=== PATIENT | female | born 1975 | race Caucasian/White ===

== ENCOUNTER 2017-06-14 13:11 | Inpatient (IN) | payer MEDICARE, MEDICAID ==
[2017-06-14] MEDS ORDERED: cefTRIAXone SODIUM 2 GM in IV DEXTROSE 5% 100 ML IV (13:30)
[2017-06-14] MEDS ORDERED: PROMETHAZINE 25 MG SUPP.RECT. PR (13:45)
[2017-06-14] MEDS: GABAPENTIN 300 MG CAPSULE. PO ×2 (14:00→21:22)
[2017-06-14] MEDS: BACLOFEN 10 MG TABLET. PO ×2 (14:00→21:22)
[2017-06-14 14:40] LABS: HEMATOCRIT 33.4 % (36.0-47.0); HEMOGLOBIN 10.8 g/dL (12.0-15.5); MEAN CORPUSCULAR HEMOGLOBIN 24 pg (25-35); MEAN CORPUSCULAR HGB CONC 33 g/dL (31-37); MEAN CORPUSCULAR VOLUME 75 fL (79-100); PLATELET COUNT 233 x10^3/uL (140-400); RED BLOOD COUNT 4.44 x10^6/uL (3.50-5.40); RED CELL DISTRIBUTION WIDTH 16.7 % (11.5-14.5); WHITE BLOOD COUNT 9.3 x10^3/uL (4.0-11.0)
[2017-06-14 14:49] LABS: ANION GAP 9 (6-14); BLOOD UREA NITROGEN 8 mg/dL (7-20); BUN/CREATININE RATIO 9 (6-20); CALCIUM 8.5 mg/dL (8.5-10.1); CARBON DIOXIDE 30 mmol/L (21-32); CHLORIDE 103 mmol/L (98-107); CREATININE 0.9 mg/dL (0.6-1.0); GLUCOSE 107 mg/dL (70-99); POTASSIUM 3.6 mmol/L (3.5-5.1); SODIUM 142 mmol/L (136-145)
[2017-06-14 14:55] LABS: ALBUMIN 3.1 g/dL (3.4-5.0); ALBUMIN/GLOBULIN RATIO 0.8 (1.0-1.7); ALK PHOS 96 U/L (46-116); ALT (SGPT) 25 U/L (14-59); AST (SGOT) 19 U/L (15-37); MAGNESIUM 1.8 mg/dL (1.8-2.4); TOTAL BILIRUBIN 0.5 mg/dL (0.2-1.0); TOTAL PROTEIN 7.1 g/dL (6.4-8.2)
[2017-06-14 15:09] LABS: LACTIC ACID 1.6 mmol/L (0.4-2.0)
[2017-06-14] MEDS ORDERED: CONTRAST GIVEN MC (15:15)
[2017-06-14] MEDS: IOHEXOL 300 MG/ML 100ML VIAL. IV (15:27)
[2017-06-14] MEDS: PROMETHAZINE 12.5 MG in IV DEXTROSE 5% 50 ML IV ×3 (15:34→21:19)
[2017-06-14] MEDS: AZITHROMYCIN 500 MG in IV NORMAL SALINE 250ML 250 ML IV (16:52)
[2017-06-14] MEDS: cefTRIAXone IV Push 2 GM VIAL. IVP (16:52)
[2017-06-14] MEDS: ALBUTEROL SULFATE 2.5 MG/3 ML NEBU. NEB ×2 (17:00→20:06)
[2017-06-14] MEDS: HYDROmorphone 2 MG/ML VIAL IV ×3 (17:18→21:19)
[2017-06-14] MEDS: LACTOBACILLUS RHAMNOSUS GG 1 CAPSULE. PO (21:22)
[2017-06-15] MEDS: HYDROmorphone 2 MG/ML VIAL IV ×2 (00:15→03:55)
[2017-06-15] MEDS: PROMETHAZINE 12.5 MG in IV DEXTROSE 5% 50 ML IV ×6 (00:15→20:50)
[2017-06-15 05:17] LABS: MRSA BY PCR Negative (Negative)
[2017-06-15] MEDS: ALBUTEROL SULFATE 2.5 MG/3 ML NEBU. NEB ×4 (08:00→20:00)
[2017-06-15] MEDS ORDERED: LIDOCAINE WITH 8.4% SOD BICARB 3 ML DISP.SYRIN. (08:02)
[2017-06-15] MEDS: HYDROmorphone 4 MG TABLET PO ×9 (08:51→21:51)
[2017-06-15] MEDS: LACTOBACILLUS RHAMNOSUS GG 1 CAPSULE. PO ×2 (08:51→20:51)
[2017-06-15] MEDS: BACLOFEN 10 MG TABLET. PO ×3 (08:51→20:50)
[2017-06-15] MEDS: GABAPENTIN 300 MG CAPSULE. PO ×3 (08:52→20:51)
[2017-06-15] MEDS: LIDOCAINE WITH 8.4% SOD BICARB 3 ML DISP.SYRIN. INJ (10:04)
[2017-06-15] MEDS: IV NORMAL SALINE 1000ML BAG 1,000 ML IV ×2 (10:45→20:50)
[2017-06-15 11:43] LABS: ADD MAN DIFF? NO
[2017-06-15 11:44] LABS: BASO % 1 % (0-3); EOS % 1 % (0-3); HEMOGLOBIN 10.2 g/dL (12.0-15.5); LYMPH # 1.5 x10^3/uL (1.0-4.8); LYMPH % 21 % (24-48); MEAN CORPUSCULAR HEMOGLOBIN 25 pg (25-35); MEAN CORPUSCULAR HGB CONC 33 g/dL (31-37); MEAN CORPUSCULAR VOLUME 75 fL (79-100); MONO # 0.5 x10^3/uL (0.0-1.1); MONO % 7 % (0-9); NEUT # 5.4 x10^3uL (1.8-7.7); NEUT % 72 % (31-73); PLATELET COUNT 221 x10^3/uL (140-400); RED BLOOD COUNT 4.13 x10^6/uL (3.50-5.40); WHITE BLOOD COUNT 7.5 x10^3/uL (4.0-11.0)
[2017-06-15 11:54] LABS: ANION GAP 8 (6-14); BLOOD UREA NITROGEN 8 mg/dL (7-20); BUN/CREATININE RATIO 10 (6-20); CALCIUM 8.2 mg/dL (8.5-10.1); CARBON DIOXIDE 30 mmol/L (21-32); CHLORIDE 106 mmol/L (98-107); CREATININE 0.8 mg/dL (0.6-1.0); GLUCOSE 97 mg/dL (70-99); POTASSIUM 3.3 mmol/L (3.5-5.1); SODIUM 144 mmol/L (136-145)
[2017-06-15 12:00] LABS: ALBUMIN/GLOBULIN RATIO 0.9 (1.0-1.7); ALK PHOS 89 U/L (46-116); ALT (SGPT) 22 U/L (14-59); AST (SGOT) 17 U/L (15-37); TOTAL BILIRUBIN 0.6 mg/dL (0.2-1.0); TOTAL PROTEIN 6.5 g/dL (6.4-8.2)
[2017-06-15 12:03] LABS: LACTIC ACID 0.9 mmol/L (0.4-2.0)
[2017-06-15 15:28] LABS: CSF GLUCOSE 61 mg/dL (37-70)
[2017-06-15 15:31] LABS: CSF CLARITY CLEAR; CSF COLOR COLORLESS; CSF RBC COUNT 5; CSF TUBE # 3; CSF WBC COUNT 1
[2017-06-15] MEDS: AZITHROMYCIN 500 MG in IV DEXTROSE 5 %-0.2 % NACL 250 ML IV (15:50)
[2017-06-15] MEDS: cefTRIAXone IV Push 2 GM VIAL. IVP (15:51)
[2017-06-15] MEDS: POTASSIUM CL 20MEQ D5-0.45NACL 1,000 ML IV (15:58)
[2017-06-15] MEDS: ACETAMINOPHEN 325 MG TABLET. PO (20:51)
[2017-06-16] MEDS: POTASSIUM CL 20MEQ D5-0.45NACL 1,000 ML IV ×2 (02:25→15:28)
[2017-06-16] MEDS: PROMETHAZINE 12.5 MG in IV DEXTROSE 5% 50 ML IV ×4 (03:08→21:33)
[2017-06-16] MEDS: ACETAMINOPHEN 325 MG TABLET. PO (03:35)
[2017-06-16] MEDS: HYDROmorphone 4 MG TABLET PO ×4 (03:36→22:51)
[2017-06-16] MEDS: IV NORMAL SALINE 1000ML BAG 1,000 ML IV ×3 (05:30→23:58)
[2017-06-16] MEDS: ALBUTEROL SULFATE 2.5 MG/3 ML NEBU. NEB ×4 (07:15→19:27)
[2017-06-16] MEDS: LACTOBACILLUS RHAMNOSUS GG 1 CAPSULE. PO ×2 (08:37→20:38)
[2017-06-16] MEDS: BACLOFEN 10 MG TABLET. PO ×3 (08:37→20:38)
[2017-06-16] MEDS: GABAPENTIN 300 MG CAPSULE. PO ×3 (08:44→20:38)
[2017-06-16] MEDS: fentaNYL 25MCG/HR PATCH 1 PATCH PATCH.TD72 TD (09:49)
[2017-06-16] MEDS: AZITHROMYCIN 500 MG in IV DEXTROSE 5 %-0.2 % NACL 250 ML IV (14:21)
[2017-06-16] MEDS: cefTRIAXone IV Push 2 GM VIAL. IVP (15:28)
[2017-06-16] MEDS: CLOTRIMAZOLE 1% VAGINAL CREAM 45GM TUBE. VG (20:39)
[2017-06-16 21:10] LABS: C DIFF BY PCR Negative (Negative)
[2017-06-17] MEDS: ACETAMINOPHEN/CODEINE 300/30MG TABLET. PO (01:59)
[2017-06-17] MEDS: POTASSIUM CL 20MEQ D5-0.45NACL 1,000 ML IV (02:06)
[2017-06-17] MEDS: PROMETHAZINE 12.5 MG in IV DEXTROSE 5% 50 ML IV ×4 (02:15→21:08)
[2017-06-17] MEDS: HYDROmorphone 4 MG TABLET PO ×4 (05:35→23:41)
[2017-06-17 05:53] LABS: HEMATOCRIT 31.1 % (36.0-47.0); HEMOGLOBIN 10.1 g/dL (12.0-15.5); MEAN CORPUSCULAR HEMOGLOBIN 24 pg (25-35); MEAN CORPUSCULAR HGB CONC 33 g/dL (31-37); MEAN CORPUSCULAR VOLUME 74 fL (79-100); PLATELET COUNT 239 x10^3/uL (140-400); RED BLOOD COUNT 4.19 x10^6/uL (3.50-5.40); RED CELL DISTRIBUTION WIDTH 16.3 % (11.5-14.5); WHITE BLOOD COUNT 8.4 x10^3/uL (4.0-11.0)
[2017-06-17 06:16] LABS: ALBUMIN 2.7 g/dL (3.4-5.0); ALBUMIN/GLOBULIN RATIO 0.7 (1.0-1.7); ALK PHOS 83 U/L (46-116); ALT (SGPT) 26 U/L (14-59); ANION GAP 7 (6-14); AST (SGOT) 19 U/L (15-37); BLOOD UREA NITROGEN 5 mg/dL (7-20); BUN/CREATININE RATIO 6 (6-20); CALCIUM 8.1 mg/dL (8.5-10.1); CARBON DIOXIDE 31 mmol/L (21-32); CHLORIDE 106 mmol/L (98-107); CREATININE 0.9 mg/dL (0.6-1.0); GLUCOSE 111 mg/dL (70-99); POTASSIUM 3.1 mmol/L (3.5-5.1); SODIUM 144 mmol/L (136-145); TOTAL BILIRUBIN 0.4 mg/dL (0.2-1.0); TOTAL PROTEIN 6.4 g/dL (6.4-8.2)
[2017-06-17] MEDS: ALBUTEROL SULFATE 2.5 MG/3 ML NEBU. NEB ×4 (07:22→19:35)
[2017-06-17] MEDS: BACLOFEN 10 MG TABLET. PO ×3 (08:36→21:09)
[2017-06-17] MEDS: GABAPENTIN 300 MG CAPSULE. PO ×3 (08:36→21:09)
[2017-06-17] MEDS: LACTOBACILLUS RHAMNOSUS GG 1 CAPSULE. PO ×2 (08:36→21:09)
[2017-06-17] MEDS: POTASSIUM CHLORIDE 20 MEQ TABLET.ER. PO ×3 (10:10→21:09)
[2017-06-17] MEDS: POTASSIUM CL 40MEQ D5-0.45NACL 1,000 ML IV ×2 (10:30→23:53)
[2017-06-17] MEDS ORDERED: CONTRAST GIVEN MC (10:45)
[2017-06-17] MEDS: IOHEXOL 300 MG/ML 100ML VIAL. IV (11:00)
[2017-06-17] MEDS: IV NORMAL SALINE 1000ML BAG 1,000 ML IV ×2 (11:24→21:20)
[2017-06-17] MEDS: AZITHROMYCIN 500 MG in IV DEXTROSE 5 %-0.2 % NACL 250 ML IV (13:53)
[2017-06-17] MEDS: cefTRIAXone IV Push 2 GM VIAL. IVP (15:07)
[2017-06-17] MEDS: CLOTRIMAZOLE 1% VAGINAL CREAM 45GM TUBE. VG (21:16)
[2017-06-18] MEDS: PROMETHAZINE 12.5 MG in IV DEXTROSE 5% 50 ML IV (01:21)
[2017-06-18] MEDS: HYDROmorphone 4 MG TABLET PO ×2 (05:46→12:55)
[2017-06-18] MEDS: PROMETHAZINE 12.5 MG in IV NORMAL SALINE 50ML 50 ML IV ×2 (06:11→10:08)
[2017-06-18] MEDS: ALBUTEROL SULFATE 2.5 MG/3 ML NEBU. NEB ×3 (06:52→14:49)
[2017-06-18 07:23] LABS: ANION GAP 5 (6-14); BLOOD UREA NITROGEN 5 mg/dL (7-20); CALCIUM 8.9 mg/dL (8.5-10.1); CARBON DIOXIDE 31 mmol/L (21-32); CHLORIDE 104 mmol/L (98-107); CREATININE 0.8 mg/dL (0.6-1.0); GLUCOSE 115 mg/dL (70-99); POTASSIUM 3.6 mmol/L (3.5-5.1); SODIUM 140 mmol/L (136-145)
[2017-06-18] MEDS: POTASSIUM CHLORIDE 20 MEQ TABLET.ER. PO ×2 (08:16→14:01)
[2017-06-18] MEDS: LACTOBACILLUS RHAMNOSUS GG 1 CAPSULE. PO (08:16)
[2017-06-18] MEDS: BACLOFEN 10 MG TABLET. PO ×2 (08:17→14:01)
[2017-06-18] MEDS: GABAPENTIN 300 MG CAPSULE. PO ×2 (08:17→14:00)
[2017-06-18] MEDS ORDERED: diphenhydrAMINE 50 MG/ML VIAL IM (09:30)
[2017-06-18] MEDS: DEXAMETHASONE SOD PHOS 4 MG/ML VIAL IV (09:56)
[2017-06-18] MEDS: diphenhydrAMINE 50 MG/ML VIAL IVP (09:59)
[2017-06-18] MEDS: HYDROmorphone 2 MG/ML VIAL IV (10:03)
[2017-06-18] MEDS: POTASSIUM CL 40MEQ D5-0.45NACL 1,000 ML IV (12:48)
[2017-06-18] MEDS: AZITHROMYCIN 500 MG in IV DEXTROSE 5 %-0.2 % NACL 250 ML IV (12:56)
[2017-06-18] MEDS: cefTRIAXone IV Push 2 GM VIAL. IVP (14:02)
== END 2017-06-18 15:53 | disposition home or self-care (01) | DRG 871 ==
LOC: 1 WEST ICU 13:11 → 5 NORTH 06-15 18:30
PROC: 02HV33Z Insertion of Infusion Device into Superior Vena Cava, Percutaneous Approach (ICD-10-PCS; principal; 2017-06-14)
PROC: B548ZZA Ultrasonography of Superior Vena Cava, Guidance (ICD-10-PCS; 2017-06-14)
PROC: 009U3ZX Drainage of Spinal Canal, Percutaneous Approach, Diagnostic (ICD-10-PCS; 2017-06-15)
PROC: B01B1ZZ Fluoroscopy of Spinal Cord using Low Osmolar Contrast (ICD-10-PCS; 2017-06-15)
DX: A41.9 Sepsis, unspecified organism (principal); J18.9 Pneumonia, unspecified organism; D68.62 Lupus anticoagulant syndrome; D68.0 Von Willebrand disease; D68.2 Hereditary deficiency of other clotting factors; G93.2 Benign intracranial hypertension; D69.6 Thrombocytopenia, unspecified; D50.9 Iron deficiency anemia, unspecified; R19.7 Diarrhea, unspecified; Z98.1 Arthrodesis status; Z90.49 Acquired absence of other specified parts of digestive tract; Z88.8 Allergy status to other drugs, medicaments and biological substances; Z79.899 Other long term (current) drug therapy; Z98.2 Presence of cerebrospinal fluid drainage device; Z87.442 Personal history of urinary calculi; Z86.61 Personal history of infections of the central nervous system
CPT/HCPCS: 36415; 36556; 62270; 70250; 70450; 71045; 71250; 71275; 72170; 76937; 77001; 80048; 80053; 82945; 83605; 83735; 84157; 85025; 85027; 87071; 87075; 87205; 87324; 87641; 89051; 94640; 94760; C1892; J0456; J0696; J1100; J1170; J1200; J2550; J7030; J7042; J7050; J7613; Q9967